=== PATIENT | female | born 1965 | race Hispanic/Latino ===

== ENCOUNTER 2016-05-22 15:06 | Emergency (ER) | payer MEDICAID ==
[2016-05-22] MEDS ORDERED: NACL ONE (21:26)
[2016-05-22] MEDS ORDERED: ZOFRAN IV ONE (21:28)
[2016-05-22] MEDS ORDERED: MORPHINE IV ONE (21:28)
[2016-05-22] MEDS ORDERED: BOOSTRIX IM ONE (21:33)
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
[2016-05-22 22:02] LABS: Basophils % (Auto) 0.6 % (0.0-1.8); Eosinophils % (Auto) 2.4 % (0.0-4.3); Hematocrit 43.7 % (30.3-42.9); Hemoglobin 14.7 gm/dl (10.1-14.3); Mean Corpuscular HGB Conc 34 % (30-34); Mean Corpuscular Hemoglobin 31 pg (28-32); Mean Corpuscular Volume 91 fl (79-97); Platelet Count 128 K/mm3 (140-440); Red Blood Count 4.81 M/mm3 (3.65-5.03); Red Cell Distribution Width 13.6 % (13.2-15.2); White Blood Count 4.2 K/mm3 (4.5-11.0)
[2016-05-22 22:31] LABS: Alanine Aminotransferase 131 units/L (7-56); Albumin 4.1 g/dL (3.9-5); Albumin/Globulin Ratio 1.5 %; Alkaline Phosphatase 115 units/L (35-129); Anion Gap 18 mmol/L; BUN/Creatinine Ratio 21.66; Bilirubin,Total 0.5 mg/dL (0.1-1.2); Blood Urea Nitrogen 13 mg/dL (7-17); Calcium 9.2 mg/dL (8.4-10.2); Carbon Dioxide 25 mmol/L (22-30); Chloride 101.1 mmol/L (98-107); Glucose 90 mg/dL (65-100); Lipase 21 units/L (13-60); Potassium 3.9 mmol/L (3.6-5.0); Sodium 140 mmol/L (137-145); Total Protein 6.8 g/dL (6.3-8.2)
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
[2016-05-22 23:59] VITALS: BP 101/58
--- NOTE | 2016-05-23 07:44 | XRay Report ---
Bilateral knees, 3 views of each: Trauma, pain. Multiple views of the right knee demonstrate normal bones, joints, and soft tissues. Multiple left knee images demonstrate bilateral periarticular spurs. There is narrowing of the medial joint compartment. The bones are well aligned. There may be a small joint effusion. No fracture deformity noted. The bones are adequately mineralized. Impression: Degenerative changes of the left knee. Small joint effusion of questionable chronicity.
== END 2016-05-22 23:59 | disposition home or self-care (01) ==
LOC: ED 15:06
DX: S16.1XXA Strain of muscle, fascia and tendon at neck level, initial encounter (principal); S80.02XA Contusion of left knee, initial encounter; S80.01XA Contusion of right knee, initial encounter; S30.1XXA Contusion of abdominal wall, initial encounter; K21.9 Gastro-esophageal reflux disease without esophagitis; F32.9 Major depressive disorder, single episode, unspecified; J44.9 Chronic obstructive pulmonary disease, unspecified; F17.210 Nicotine dependence, cigarettes, uncomplicated; V09.9XXA Pedestrian injured in unspecified transport accident, initial encounter; Y93.89 Activity, other specified; Y99.9 Unspecified external cause status; Y92.410 Unspecified street and highway as the place of occurrence of the external cause
CPT/HCPCS: 36415; 70450; 72125; 73562; 74177; 80053; 83690; 83880; 85025; 85730; 86850; 86900; 86901; 90471; 90715; 96374; 96375; 99284; J2270; J2405; Q9967

== ENCOUNTER 2016-12-12 13:39 | Emergency (ER) | payer MEDICAID ==
[2016-12-12] MEDS ORDERED: TESSALON PERLES PO ONE (20:03)
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
--- NOTE | 2016-12-12 20:48 | XRay Report ---
FINAL REPORT EXAM: XR CHEST ROUTINE 2V HISTORY: chest congestion and cough TECHNIQUE: PA and lateral views of the chest PRIORS: CT chest 02/06/2015 FINDINGS: Lines, tubes, and devices: N/A Lungs and pleura: Trachea is normal in position. Lungs are clear of infiltrate, pleural effusion, vascular congestion, or pneumothorax. Cardiomediastinal silhouette: Cardiac and mediastinal silhouettes are unremarkable. Other: Bony structures are intact. IMPRESSION: No acute cardiopulmonary process seen.
[2016-12-12 22:05] VITALS: BP 112/77
== END 2016-12-12 21:40 | disposition home or self-care (01) ==
LOC: ED 13:39
DX: J40 Bronchitis, not specified as acute or chronic (principal); J06.9 Acute upper respiratory infection, unspecified; K21.9 Gastro-esophageal reflux disease without esophagitis; J44.9 Chronic obstructive pulmonary disease, unspecified; F17.200 Nicotine dependence, unspecified, uncomplicated; F12.10 Cannabis abuse, uncomplicated
CPT/HCPCS: 71020; 96372; 99283; J2930

== ENCOUNTER 2017-04-02 09:09 | Emergency (ER) | payer MEDICAID ==
[2017-04-02 09:30] VITALS: BP 118/76
[2017-04-02] MEDS ORDERED: TORADOL IM ONE (11:53)
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
--- NOTE | 2017-04-02 15:13 | XRay Report ---
LEFT KNEE, 3 views: History: Left knee injury. Bone mineralization is within normal limits. Moderate medial compartment osteoarthritic changes are identified. No evidence for acute fracture or bone lesion. No large joint effusion. IMPRESSION: Osteoarthritis. No acute injury is appreciated.
== END 2017-04-02 12:10 | disposition home or self-care (01) ==
LOC: ED 09:09
DX: M17.12 Unilateral primary osteoarthritis, left knee (principal); M25.562 Pain in left knee; F32.9 Major depressive disorder, single episode, unspecified; J44.9 Chronic obstructive pulmonary disease, unspecified; F17.200 Nicotine dependence, unspecified, uncomplicated
CPT/HCPCS: 73562; 96372; 99283; J1885

== ENCOUNTER 2017-05-25 17:30 | Emergency (ER) | payer MEDICAID ==
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
[2017-05-25] MEDS ORDERED: NORCO 7.5/325 PO ONE (19:54)
[2017-05-25 19:56] LABS: Bacteria,Urine 1+ /HPF (Negative); Bilirubin,Urine NEG (Negative); Blood,Urine NEG (Negative); Color,Urine Yellow (Yellow); Mucus,Urine FEW /HPF; Protein,Urine <15 mg/dL mg/dL (Negative); Urobilinogen,Urine < 2.0 mg/dL (<2.0)
[2017-05-25 21:15] VITALS: BP 104/63
== END 2017-05-25 21:15 | disposition home or self-care (01) ==
LOC: ED 17:30
DX: N39.0 Urinary tract infection, site not specified (principal); K21.9 Gastro-esophageal reflux disease without esophagitis; F41.0 Panic disorder [episodic paroxysmal anxiety]; F32.9 Major depressive disorder, single episode, unspecified; J44.9 Chronic obstructive pulmonary disease, unspecified; F17.200 Nicotine dependence, unspecified, uncomplicated
CPT/HCPCS: 81001; 87086; 99283

== ENCOUNTER 2017-11-18 17:27 | Emergency (ER) | payer MEDICAID ==
[2017-11-18 17:48] VITALS: BP 124/78
[2017-11-18] MEDS ORDERED: XYLOCAINE 1% MPF 5 mL INFILTRATI ONE ×2 (19:16→19:46)
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
[2017-11-18] MEDS ORDERED: FLAGYL PO ONE (19:45)
[2017-11-18] MEDS ORDERED: ZITHROMAX PO ONE (19:45)
[2017-11-18] MEDS ORDERED: ROCEPHIN IM ONE (19:46)
[2017-11-18 20:11] LABS: Bacteria,Urine 1+ /HPF (Negative); Bilirubin,Urine NEG (Negative); Blood,Urine NEG (Negative); Color,Urine Yellow (Yellow); Mucus,Urine FEW /HPF; Protein,Urine <15 mg/dL mg/dL (Negative)
[2017-11-18 20:13] LABS: HCG Qualitative,Urine Negative (Negative)
[2017-11-18] MEDS ORDERED: NORCO 5/325 PO ONE (20:47)
[2017-11-18] MEDS ORDERED: NORCO 5/325 ONE (20:51)
== END 2017-11-18 20:52 | disposition home or self-care (01) ==
LOC: ED 17:27
DX: N30.00 Acute cystitis without hematuria (principal); K21.9 Gastro-esophageal reflux disease without esophagitis; J44.9 Chronic obstructive pulmonary disease, unspecified; F17.200 Nicotine dependence, unspecified, uncomplicated
CPT/HCPCS: 81001; 81025; 87210; 96372; 99284; J0696

== ENCOUNTER 2018-04-21 14:11 | Emergency (ER) | payer MEDICAID ==
--- NOTE | 2018-04-21 14:35 | Emergency Department Report ---
Chief Complaint: Dyspnea/Respdistress Stated Complaint: COUGH/KNEE PAIN Time Seen by Provider: 04/21/18 14:32 - HPI History of Present Illness: Pt is c/o productive cough with yellow phlegm (+)SOB substernal CP feels like a tightness no radiation of the pain no fever, N/V, diaphoresis hx of COPD, still smoking last hospitalized 3-4 years for COPD left knee pain s/p a fall a couple of weeks ago, has left knee edema VSS MSE complete MSE screening note: Focused history and physical exam performed. Due to findings the following was ordered: CP protocol, left knee xr ED Disposition for MSE Condition: Stable
[2018-04-21 15:16] LABS: Basophils % (Auto) 0.6 % (0.0-1.8); Eosinophils % (Auto) 1.1 % (0.0-4.3); Hematocrit 41.4 % (30.3-42.9); Hemoglobin 14.4 gm/dl (10.1-14.3); Lymphocytes # (Auto) 0.8 K/mm3 (1.2-5.4); Lymphocytes % (Auto) 28.7 % (13.4-35.0); Mean Corpuscular HGB Conc 35 % (30-34); Mean Corpuscular Volume 96 fl (79-97); Monocytes # (Auto) 0.3 K/mm3 (0.0-0.8); Monocytes % (Auto) 10.3 % (0.0-7.3); Red Blood Count 4.31 M/mm3 (3.65-5.03); Red Cell Distribution Width 13.1 % (13.2-15.2)
[2018-04-21 15:24] LABS: INR 0.9 (0.87-1.13)
[2018-04-21 15:25] LABS: Partial Thromboplastin Time 20.7 Sec. (24.2-36.6)
--- NOTE | 2018-04-21 15:30 | XRay Report ---
LEFT KNEE, 2 views: History: Left knee pain and edema. There is borderline bone mineralization. Moderate osteoarthritic changes are identified. The medial compartment is most affected. No evidence for fracture or or bone lesion. IMPRESSION: Osteoarthritis.
--- NOTE | 2018-04-21 15:31 | XRay Report ---
ROUTINE CHEST, TWO VIEWS: HISTORY: Dyspnea. The trachea, heart, mediastinal contour, lung abraham and bony thorax are unremarkable. IMPRESSION: Unremarkable chest x-ray.
[2018-04-21 15:33] LABS: Alanine Aminotransferase 48 units/L (7-56); Albumin 3.6 g/dL (3.9-5); BUN/Creatinine Ratio 12; Blood Urea Nitrogen 11 mg/dL (7-17); Calcium 8.6 mg/dL (8.4-10.2); Hemolysis Index 10
[2018-04-21 16:47] VITALS: BP 113/61
[2018-04-21 17:16] LABS: Platelet Count 93 K/mm3 (140-440)
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
== END 2018-04-21 18:08 | disposition home or self-care (01) ==
LOC: ED 14:11
DX: J20.9 Acute bronchitis, unspecified (principal); M25.562 Pain in left knee; J44.9 Chronic obstructive pulmonary disease, unspecified; F17.200 Nicotine dependence, unspecified, uncomplicated; K21.9 Gastro-esophageal reflux disease without esophagitis; M19.90 Unspecified osteoarthritis, unspecified site
CPT/HCPCS: 36415; 71046; 80053; 84484; 85025; 85610; 85730; 93005; 93010; 99283

== ENCOUNTER 2019-03-21 16:06 | Emergency (ER) | payer MEDICAID ==
[2019-03-21 16:13] VITALS: BP 101/81
--- NOTE | 2019-03-21 18:25 | Emergency Department Report ---
Chief Complaint: Back Pain/Injury Stated Complaint: BACK PAIN, Time Seen by Provider: 03/21/19 18:23 - Exam Vital Signs: Vital Signs 03/21/19 16:10 Temperature 98.2 F Pulse Rate 83 Respiratory 20 Rate Blood Pressure 101/81 O2 Sat by Pulse 92 Oximetry MSE screening note: Focused history and physical exam performed. Due to findings the following was ordered: ED Disposition for MSE Clinical Impression: Back pain, UTI (urinary tract infection), Hx of substance abuse Disposition: - TO HOME OR SELFCARE Is pt being admited?: No Does the pt Need Aspirin: No Condition: Stable Instructions: Urinary Tract Infection in Women (ED) Prescriptions: cephALEXin [Keflex] 500 mg PO Q6HR 5 Days #20 capsule Referrals: KAYLA BURCH MD [Staff Physician] - 3-5 Days
== END 2019-03-21 18:30 | disposition home or self-care (01) ==
LOC: ED 16:06
DX: M54.9 Dorsalgia, unspecified (principal); N39.0 Urinary tract infection, site not specified; F19.10 Other psychoactive substance abuse, uncomplicated
CPT/HCPCS: 99282

== ENCOUNTER 2021-09-11 12:07 | Emergency (ER) | payer MEDICAID ==
[2021-09-11 12:42] VITALS: BP 118/69
[2021-09-11 14:31] LABS: Alanine Aminotransferase 25 units/L (7-56); Albumin 3.4 g/dL (3.9-5); BUN/Creatinine Ratio 12; Basophils % (Auto) 0.4 % (0.0-1.8); Blood Urea Nitrogen 13 mg/dL (7-17); Calcium 8.7 mg/dL (8.4-10.2); Hematocrit 39.8 % (30.3-42.9); Hemoglobin 13.6 gm/dl (10.1-14.3); Hemolysis Index 4; Lymphocytes # (Auto) 0.7 K/mm3 (1.2-5.4); Lymphocytes % (Auto) 23.5 % (13.4-35.0); Mean Corpuscular HGB Conc 34 % (30-34); Mean Corpuscular Volume 95 fl (79-97); Monocytes # (Auto) 0.2 K/mm3 (0.0-0.8); Monocytes % (Auto) 6.9 % (0.0-7.3); Red Blood Count 4.17 M/mm3 (3.65-5.03); Red Cell Distribution Width 14.3 % (13.2-15.2)
[2021-09-11 14:32] LABS: Platelet Count 74 K/mm3 (140-440)
--- NOTE | 2021-09-11 15:01 | XRay Report ---
CHEST 2 VIEWS INDICATION / CLINICAL INFORMATION: cough and SOB. COMPARISON: 04/21/2018 FINDINGS: SUPPORT DEVICES: None. HEART / MEDIASTINUM: No significant abnormality. LUNGS / PLEURA: No significant pulmonary or pleural abnormality. No pneumothorax. ADDITIONAL FINDINGS: No significant additional findings. IMPRESSION: 1. No acute findings. Signer Name: Mookie Yost MD Signed: 09/11/2021 2:09 PM Workstation Name: [id number]
[2021-09-11] MEDS ORDERED: predniSONE 20 MG TAB PO ONE (17:55)
[2021-09-11] MEDS ORDERED: HYDROcodone/ACETAMINOPHEN 5-325 MG TAB PO ONE (17:55)
[2021-09-11] MEDS ORDERED: BENZONATATE 100 MG CAP PO ONE (17:55)
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
--- NOTE | 2021-09-12 09:38 | Electrocardiograph Report ---
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
== END 2021-09-11 18:26 | disposition home or self-care (01) ==
LOC: ED 12:07
DX: J01.90 Acute sinusitis, unspecified (principal); F17.200 Nicotine dependence, unspecified, uncomplicated; J45.909 Unspecified asthma, uncomplicated
CPT/HCPCS: 36415; 71046; 80053; 84484; 85025; 93005; 99283